=== PATIENT | male | born 1950 | race Caucasian/White ===

== ENCOUNTER 2017-05-01 12:22 | Emergency (ER) | payer OTHER ==
[~2017-05-01] VITALS: Wt 108.0 kg
[2017-05-01] MEDS ORDERED: LIDOCAINE 1% (MDV) 20 ML INJ SC ONE (14:00)
[2017-05-01] MEDS ORDERED: IBUPROFEN 600 MG TAB PO ONE (14:00)
[2017-05-01] MEDS ORDERED: TRIMETHOPRIM/SULFAMETHOX (DS) TAB PO ONE (14:00)
[2017-05-01] MEDS ORDERED: ACET1TAB40 PO (14:18)
[2017-05-01] MEDS ORDERED: CEPH-443 PO (14:18)
[2017-05-01] MEDS ORDERED: SULF1TAB31 PO (14:18)
--- NOTE | 2017-05-01 14:21 | ERD ---
ER Documentation Chief Complaint Date/Time DATE: 05/01/17 TIME: 14:20 Chief Complaint ABCESS ON BACK, SENT PER PMD FOR EVAL HPI This 66-year-old male complains of a painful draining lesion in his right upper back for last week. He is referred by primary doctor for evaluation for incision and drainage. There is no history of fevers, vomiting, shortness of breath or chest pain. ROS All systems reviewed and are negative except as per history of present illness. Medications Home Meds Active Scripts Acetaminophen with Codeine (Acetaminophen-Cod #3 Tablet) 1 Each Tablet, 1 TAB PO Q6H Y for PAIN, #12 TAB Prov:JUANA CARROLL MD 05/01/17 Cephalexin* (Keflex*) 500 Mg Capsule, 500 MG PO QID for 7 Days, CAP Prov:JUANA CARROLL MD 05/01/17 Sulfamethoxazole/Trimethoprim* (Bactrim Ds* Tablet) 1 Each Tablet, 1 TAB PO BID for 7 Days, #14 TAB Prov:JUANA CARROLL MD 05/01/17 Allergies Allergies: Coded Allergies: No Known Allergy (Unverified , 05/01/17) Physical Exam Vitals Vital Signs Date Time Temp Pulse Resp B/P Pulse Ox O2 Delivery O2 Flow Rate FiO2 05/01/17 12:24 97.0 102 18 175/89 97 Physical Exam Const: [] Alert, [id number]. Head: Atraumatic Eyes: Normal Conjunctiva ENT: Normal External Ears, Nose and Mouth. Neck: Full range of motion..~ No meningismus. Resp: Clear to auscultation bilaterally Cardio: Regular rate and rhythm, no murmurs Abd: Soft, non tender, non distended. Normal bowel sounds Skin: No petechiae or rashes. The right upper back there is approximately 3 x 2 cm erythema with an actively draining hole of purulent discharge and mild fluctuance. Back: No midline or flank tenderness Ext: No cyanosis, or edema Neur: Awake and alert Psych: Normal Mood and Affect Results 24 hrs Current Medications Medications (Trade) Dose Ordered Sig/Clive Route PRN Reason Start Time Stop Time Status Last Admin Dose Admin Lidocaine (Xylocaine 1% (Mdv) 20 ml) 20 ml ONCE ONCE SC 05/01/17 14:00 05/01/17 14:01 DC Ibuprofen (Motrin) 600 mg ONCE ONCE PO 05/01/17 14:00 05/01/17 14:01 DC 05/01/17 14:04 Trimethoprim/ Sulfamethoxazole (Bactrim (Ds)) 1 tab ONCE ONCE PO 05/01/17 14:00 05/01/17 14:01 DC 05/01/17 14:04 Procedures/MDM Patient presents with an abscess possibly infected sebaceous cyst on the right upper back. Is no evidence of significant cellulitis or sepsis. Patient was given ibuprofen 600 mg of mouth and Bactrim double strength by mouth. Procedure note-the right upper back was prepped with Betadine. 6 cc of lidocaine was used for local infiltration. #11 scalpel was used to incise the wound approximately 8 cm of quarter-inch gauze was used to pack the wound and the wound was dressed. Patient will be discharged home instructions for wound check in 2-3 days for gauze removal otherwise return sooner for worsening redness, fevers, new worsening symptoms. Departure Diagnosis: Primary Impression: Abscess Condition: Stable Patient Instructions: Abscess, Incision And Drainage Additional Instructions: Wound check in 3 days for gauze removal. Recheck sooner for worsening redness, fevers, new symptoms. JUANA CARROLL MD May 01, 2017 14:21
== END 2017-05-01 14:47 | disposition home or self-care (01) ==
LOC: FTE 12:22
DX: L02.212 Cutaneous abscess of back [any part, except buttock and flank] (principal)
CPT/HCPCS: 10061; Z7610